=== PATIENT | female | born 1960 | race Caucasian/White ===

== ENCOUNTER → 2016-09-26 | Outpatient (CLI) | payer BC ==
[~2016-09-26] VITALS: Ht 161.3 cm; Wt 104.3 kg
[~2016-09-26] MED LIST: ALLERGY RELIEF10 M1 PO; ASPIRIN E.C. 8181 MG PO; B COMPLEX PO; BUFFERED ASPIR325 M2 PO; BUPROPION300 MG PO; CELEXA 20MG20 MG/TAB PO; CYMBALTA 60MG60 MG PO; FASTIN30 MG PO; L-LYSINE1000 MG PO; LEXAPRO10 MG PO; LISINOPRIL/HCTZ1 TA1 PO; LISINOPRIL5 MG PO; METFORMIN1000 MG PO; METHYLCELLULOSE PO; MULTIPLE VITAMI1 CAP PO; PREMPRO 0.625 M1 TA1 PO; PRIL40 PO; PRILOSEC 20MG20 MG PO; PRO-FAST HS18.75 MG PO; PROVENTIL0.09 MG/A1 IH; RANITIDINE 7575 MG PO; STOOL SOFTENER100 M1 PO; TOPAMAX 25MG25 M1 PO; VITAMIN B COMPL1 SGL PO; VITAMIN D31000 IU PO; ZANTAC 150150 MG PO; ZANTAC 7575 MG PO; ZESTORETIC 12.51 TAB PO; ZOCOR 40MG40 MG PO; ZOLPIDEM5 MG PO; ZYRTEC10 MG PO; [UNRECOGNIZED DRUG - OTHER] PO; [UNRECOGNIZED DRUG - OTHER] PO; cholesterol med
[2016-09-26 16:27] VITALS: BP 117/68; PULSE 75
== END ==
LOC: LIGHT 14:35
DX: Z98.84 Bariatric surgery status (principal); Z68.41 Body mass index [BMI] 40.0-44.9, adult; K21.9 Gastro-esophageal reflux disease without esophagitis; Z90.710 Acquired absence of both cervix and uterus

== ENCOUNTER → 2016-10-04 | Outpatient (CLI) | payer BC | LOC: COL.RAD 14:19 | DX: K31.4 Gastric diverticulum (principal); K21.9 Gastro-esophageal reflux disease without esophagitis; R10.11 Right upper quadrant pain; Z98.84 Bariatric surgery status ==

== ENCOUNTER → 2016-10-10 | Outpatient (CLI) | payer BC ==
[~2016-10-10] VITALS: Ht 161.3 cm; Wt 105.0 kg
[2016-10-10 15:27] VITALS: BP 120/65; PULSE 71
== END ==
LOC: LIGHT
DX: K21.9 Gastro-esophageal reflux disease without esophagitis (principal); Z98.84 Bariatric surgery status; Z48.815 Encounter for surgical aftercare following surgery on the digestive system

== ENCOUNTER 2016-10-25 10:03 | Day surgery (SDC) | payer BC ==
[~2016-10-25] VITALS: Ht 160 cm; Wt 103.7 kg
[2016-10-25] VITALS (10 sets, daily range): BP systolic 115–164; BP diastolic 63–82; PULSE 60–87; TEMP 96–98.2
[2016-10-25] MEDS ORDERED: PRILOSEC 20MG20 MG PO (11:20)
[2016-10-26 02:46] VITALS: BP 133/68; BP 146/71; PULSE 80; PULSE 85; TEMP 97.4; TEMP 98.3
[2016-10-26 04:45] VITALS: BP 135/76; PULSE 65; TEMP 97
[2016-10-26 09:32] VITALS: BP 118/58; PULSE 67; TEMP 97.9
[2016-10-26 13:51] VITALS: BP 123/65; PULSE 69; TEMP 98.2
== END 2016-10-26 15:25 | disposition home or self-care (01) ==
LOC: SDCO 10:03 → SURG 14:25 → SDCO 10-26 15:25
DX: K95.09 Other complications of gastric band procedure (principal); R10.12 Left upper quadrant pain; R11.2 Nausea with vomiting, unspecified; K21.9 Gastro-esophageal reflux disease without esophagitis; E66.9 Obesity, unspecified; I10 Essential (primary) hypertension; E78.5 Hyperlipidemia, unspecified; G47.30 Sleep apnea, unspecified; J45.909 Unspecified asthma, uncomplicated; F41.8 Other specified anxiety disorders
CPT/HCPCS: OP; J0330; J0690; J1100; J1885; J2405; J2704; J2710; J2765; J3010; J7030

== ENCOUNTER → 2016-11-07 | Outpatient (CLI) | payer BC ==
[~2016-11-07] VITALS: Ht 161.3 cm; Wt 105.2 kg
[2016-11-07 18:01] VITALS: BP 127/71; PULSE 67
== END ==
LOC: LIGHT 15:11
DX: Z02.89 Encounter for other administrative examinations (principal)

== ENCOUNTER → 2017-06-05 | Outpatient (REF) | LOC: ZLAB.WCH 14:28 | DX: Z01.89 Encounter for other specified special examinations (principal) ==

== ENCOUNTER → 2017-06-15 | Outpatient (REF) | LOC: ZLAB.WCH 18:10 | DX: Z01.89 Encounter for other specified special examinations (principal) ==

== ENCOUNTER → 2017-06-23 | Outpatient (CLI) | payer BC | LOC: COL.LAB 13:42 | DX: Z96.651 Presence of right artificial knee joint (principal) ==

== ENCOUNTER → 2018-03-13 | Outpatient (REF) | LOC: ZLAB.WCH 08:39 | DX: Z01.89 Encounter for other specified special examinations (principal) ==

== ENCOUNTER → 2021-08-12 | Outpatient (CLI) | payer BC | LOC: COL.RAD 09:45 | DX: R10.9 Unspecified abdominal pain (principal); R14.0 Abdominal distension (gaseous) | CPT/HCPCS: A9537; J2270; J2805 ==

== ENCOUNTER 2021-09-01 05:33 | Day surgery (SDC) | payer BC ==
[~2021-09-01] VITALS: Ht 162.6 cm; Wt 116.0 kg
[~2021-09-01 05:33] MED LIST changes: +LYSINE1000 MG PO
[2021-09-01 05:54] VITALS: BP 114/66; PULSE 64; TEMP 97.1
[2021-09-01] MEDS ORDERED: PRINZIDE 25 MG-1 TAB PO (05:56)
[2021-09-01] MEDS ORDERED: ARMOUR THYROID30 MG PO (05:57)
[2021-09-01 06:16] LABS: BASO % 0.6 % (0.0-2.0); EOS # 0.1 K/mm3 (0.0-0.7); GRAN # 3.3 K/mm3 (1.4-6.5); GRAN % 45.6 % (42.2-75.2); HEMOGLOBIN 12.7 g/dl (12.5-16.0); LYMPH # 2.9 K/mm3 (1.2-3.4); LYMPH % 39.9 % (20.0-51.0); MEAN CELL VOLUME 87 fl (80.0-100.0); MEAN CORPUSCULAR HEMOGLOBIN 29 pg (27-31); MEAN CORPUSCULAR HGB CONC 33 g/dl (33.0-37.0); MEAN PLATELET VOLUME 8.9 fl (7.4-10.4); MONO # 0.8 K/mm3 (0.1-0.6); MONO % 11.3 % (1.7-9.3); PLATELET COUNT 293 K/mm3 (130-400); RED BLOOD COUNT 4.37 M/mm3 (4.10-5.30); REDCELL DISTRIBUTION WIDTH-CV 13.7 % (11.5-14.5)
[2021-09-01] MEDS ORDERED: INDERAL LA 80MG80 MG PO (06:27)
[2021-09-01] MEDS ORDERED: GLUCOPHAGE XR500 M1 PO (06:27)
[2021-09-01] MEDS ORDERED: PRISTIQ100 MG PO (06:28)
[2021-09-01] MEDS ORDERED: TRULICITY1.5 MG/0.5 SQ (06:29)
[2021-09-01] MEDS ORDERED: ZYRTEC 10MG10 MG PO (06:30)
[2021-09-01] MEDS ORDERED: COMPLETE MULTI1 TAB PO (06:30)
[2021-09-01] MEDS ORDERED: GINGER500 MG PO (06:31)
[2021-09-01] MEDS ORDERED: TURMERIC500 MG PO (06:31)
[2021-09-01] MEDS ORDERED: VITAMIN D31000 I1 PO (06:32)
[2021-09-01] MEDS ORDERED: GRAPE SEED EXTR1 CAP PO (06:32)
[2021-09-01] MEDS ORDERED: NATURAL MAGNES200 MG PO (06:33)
[2021-09-01] MEDS ORDERED: VITAMIN C500 MG PO (06:33)
[2021-09-01 06:51] LABS: BILIRUBIN,TOTAL 0.2 mg/dL (0.2-1.2); CALCIUM 9.1 mg/dL (8.4-10.2); CREATININE, serum 0.79 mg/dL (0.57-1.11); POTASSIUM 3.5 mmol/L (3.5-4.5); TOTAL PROTEIN 7.2 gm/dL (6.2-8.1)
[2021-09-01] MEDS ORDERED: NORCO 325 MG-51 TAB PO (08:47)
[2021-09-01 09:20] VITALS: BP 137/62; PULSE 73; TEMP 98.3
--- NOTE | 2021-09-01 09:20 | NUR ---
The patient arrived back to [facility] from the recovery room at this time. The patient appears alert and oriented and denies any pain or nausea at this time. Post operative vital signs were started at this time. The patient has four incisions that are covered with surgical glue and without redness or edema. The patient has oxygen in place at 2L per nasal cannula. The patient reports feeling hot and was given a cool washcloth for her neck at this time. The patient agrees to try some iced tea and applesauce. The patient's is at her bedside. Will continue to monitor the patient.
[2021-09-01 09:35] VITALS: BP 135/64; PULSE 72
--- NOTE | 2021-09-01 09:35 | NUR ---
The patient appears to be resting comfortably on the cart at this time. Call light is within reach. Will continue to monitor the patient.
[2021-09-01 09:50] VITALS: BP 134/65; PULSE 71
--- NOTE | 2021-09-01 09:50 | NUR ---
The patient appears to be tolerating the food and drink well. Vital signs appear stable. The patient states she feels like she is "cooling off".
[2021-09-01 10:05] VITALS: BP 140/75; PULSE 72
--- NOTE | 2021-09-01 10:05 | NUR ---
The patient was weaned off her oxygen and appears to be tolerating room air well. Vital signs remain stable. Call light is within reach. at bedside. Will continue to monitor the patient.
[2021-09-01 10:31] VITALS: BP 131/66; PULSE 75
--- NOTE | 2021-09-01 10:31 | NUR ---
The patient appears to be resting comfortably on the cart at this time. Vital signs appear stable. The patient denies wanting anything further to eat or drink. Will continue to monitor the patient.
--- NOTE | 2021-09-01 10:35 | NUR ---
The patient ambulated to the bathroom with the stand by assistance of one nurse and appeared to tolerate the activity well. The nurse instructed the patient that if she is able to void she can ambulate back to her room and get dressed. Once she is dressed she is to notify the staff to review her discharge instructions.
--- NOTE | 2021-09-01 10:46 | NUR ---
The patient was succesful in voiding and is dressed and ready to review her discharge instrcutions. Discharge instructions were reviewed with the patient and her at this time. They both verbalized understanding and have no questions for the nurse at this time. The patient's IV to her right hand was removed and a pressure dressing was applied to the site. The patient is ready to be escorted out.
--- NOTE | 2021-09-01 10:54 | NUR ---
The patient was escorted out via wheelchair to a private vehicle by SAIGE Cormier. The patient's belongings and discharge paperwork were sent with her. The patient's is present to drive her home.
== END 2021-09-01 10:54 | disposition home or self-care (01) ==
LOC: SDCO 05:33
PROVIDERS: Surgery
DX: K81.1 Chronic cholecystitis (principal); K29.50 Unspecified chronic gastritis without bleeding; K21.9 Gastro-esophageal reflux disease without esophagitis; E66.9 Obesity, unspecified; Z79.899 Other long term (current) drug therapy; Z68.41 Body mass index [BMI] 40.0-44.9, adult
CPT/HCPCS: J0690; J1100; J1885; J2405; J2704; J3010; J7120